=== PATIENT | female | born 1985 | race Asian ===

== ENCOUNTER 2021-01-28 12:13 | Emergency (ER) | payer OTHER ==
[~2021-01-28] VITALS: Ht 157.5 cm; Wt 74.8 kg
--- NOTE | 2021-01-28 12:31 | NUR ---
The patient bibs c/o headache 8/ on and off x 1 week and high blood pressure, took amlodipine 5mg [employer]. Respiration regular and unlabored. Denies SOB. Denies N/V. Attached to the monitor. Warm blanket provided. Will continue to monitor the patient.
--- NOTE | 2021-01-28 12:33 | NUR ---
DR OVALLE AT THE BEDSIDE
[2021-01-28] MEDS ORDERED: LORAZEPAM 0.5 MG TABLET ONE (12:46)
[2021-01-28] MEDS ORDERED: LORAZEPAM 0.5 MG TABLET PO ONE (13:00)
--- NOTE | 2021-01-28 13:20 | NUR ---
THE PATIENT IS TAKEN TO CT
--- NOTE | 2021-01-28 13:32 | NUR ---
THE PATIENT IS BACK FROM CT
--- NOTE | 2021-01-28 14:01 | NUR ---
MADE DR OVALLE AWARE BP 220/151 AND HR 124.
[2021-01-28] MEDS ORDERED: METO25TA20 GT (14:21)
[2021-01-28] MEDS ORDERED: LABETALOL HCL (100MG) 100 MG TABLET ONE (14:26)
[2021-01-28] MEDS ORDERED: LABETALOL HCL (100MG) 100 MG TABLET PO ONE (14:30)
--- NOTE | 2021-01-28 15:07 | NUR ---
Patient discharged to home in stable condition. Written and verbal after care instructions given. Patient verbalizes understanding of instruction.
[2021-01-28 15:08] VITALS: BP 161/150
== END 2021-01-28 15:08 | disposition home or self-care (01) ==
LOC: ER 12:13
DX: I10 Essential (primary) hypertension (principal); Z79.899 Other long term (current) drug therapy
CPT/HCPCS: 70450-TC

== ENCOUNTER 2021-01-28 21:42 | Emergency (ER) | payer OTHER ==
[~2021-01-28] VITALS: Ht 157.5 cm; Wt 74.8 kg
[~2021-01-28 21:42] MED LIST: METO25TA20 GT
--- NOTE | 2021-01-28 21:58 | NUR ---
PT BIBRA C/O MISCARRIAGE. PT AAOX4 BREATHING EVENLY AND UNLABORED. PER PT, SHE WENT TO THE BATHROOM AND THE FETUS FELL INTO THE TOILET AND WAS STILL ATTACHED TO THE UMBILICAL CORD. UPON EVALUATION, FETUS WAS ATTACHED TO UMBILICAL CORD AND PT WAS FEELING ABD CRAMPING. PT ATTACHED TO MONITOR AND POX. MD AT BEDSIDE FOR EVAL. PT GIVEN BLANKET AND CALL LIGHT WITHIN REACH. WILL CONTINUE TO MONITOR.
[2021-01-28] MEDS ORDERED: ONDANSETRON HCL/PF 4 MG/2 ML VIAL ONE (22:47)
[2021-01-28] MEDS ORDERED: MORPHINE SULFATE INJ 4 MG/ML DISP.SYRIN ONE (22:47)
[2021-01-28] MEDS ORDERED: hydrALAZINE HCL IV 20 MG VIAL ONE (22:47)
[2021-01-28] MEDS ORDERED: ONDANSETRON HCL/PF 4 MG/2 ML VIAL IVP ONE (23:00)
[2021-01-28] MEDS ORDERED: MORPHINE SULFATE INJ 2 MG/ML DISP.SYRIN IV ONE (23:00)
[2021-01-28] MEDS ORDERED: IV NS 0.9% 1,000 ML BAG IV ONE ×2 (23:00)
[2021-01-28] MEDS ORDERED: OXYTOCIN 20 UNIT in IV NS 0.9% 1,000 ML IV ONE (23:00)
[2021-01-28] MEDS ORDERED: hydrALAZINE HCL IV 20 MG VIAL IV ONE (23:00)
[2021-01-28] MEDS ORDERED: OXYTOCIN 10 UNIT/ML ML ONE ×2 (23:04)
[2021-01-28 23:41] LABS: BASOPHILS % (AUTO) 0.1 % (0.0-2.0); HEMATOCRIT 36 % (33-45); HEMOGLOBIN 11.7 g/dL (11.5-14.8); LYMPHOCYTES # (AUTO) 0.9 K/uL (0.8-4.8); MEAN CORPUSCULAR HGB CONC 33 g/dl (31.0-36.0); MEAN CORPUSCULAR VOLUME 89 fL (82-100); MONOCYTES # (AUTO) 0.6 K/uL (0.1-1.30); MONOCYTES % (AUTO) 4.1 % (2.0-12.0); NEUTROPHILS # (AUTO) 13.4 K/uL (1.8-8.9); NEUTROPHILS % (AUTO) 89.8 % (43.0-81.0); PLATELET COUNT (AUTO) 70 K/uL (150-450); RED BLOOD CELL COUNT(AUTO) 3.98 MIL/uL (4.0-5.2); WHITE BLOOD COUNT (AUTO) 14.9 K/uL (4.3-11.0)
--- NOTE | 2021-01-28 23:57 | NUR ---
Nohemi wyatt in [facility] - 01/28/21 at 2358 by CHILANGO PER US KERA LOZANO
--- NOTE | 2021-01-28 23:57 | NUR ---
PER XRAY, US EN ROUTE
--- NOTE | 2021-01-29 00:25 | NUR ---
DR. PRASAD ON PHONE WITH DR. NOVOA
--- NOTE | 2021-01-29 00:32 | NUR ---
US AT BEDSIDE
[2021-01-29 00:50] LABS: ALBUMIN 2.7 g/dL (3.4-5.0); BILIRUBIN,DIRECT 0.6 mg/dL (0.0-0.2); BILIRUBIN,TOTAL 1.6 mg/dL (0.2-1.0); TOTAL PROTEIN, SERUM 6.8 g/dL (6.4-8.2)
--- NOTE | 2021-01-29 01:39 | NUR ---
pt changed, needs met
[2021-01-29 01:46] LABS: CALCIUM, SERUM 8.5 mg/dL (8.5-10.1); CREATININE 1.3 mg/dL (0.6-1.3); POTASSIUM 4.1 mmol/L (3.5-5.1)
[2021-01-29] MEDS ORDERED: OXYTOCIN 10 UNIT/ML ML ONE (02:34)
--- NOTE | 2021-01-29 02:40 | NUR ---
VERBAL ORDER OF 10UNITS OF PITOCIN.
--- NOTE | 2021-01-29 02:42 | NUR ---
PITOCIN GIVEN AT BEDSIDE BY
--- NOTE | 2021-01-29 05:35 | NUR ---
SPEAKING WITH DR LANDA
--- NOTE | 2021-01-29 05:45 | NUR ---
SPOKE WITH DAISY RN [facility] FOR AN OB PATIENT NEEDING A MED/SURG ROOM. REFFERED BY DR. GISSELL PRASAD. WILL CALL BACK FOR ACCEPTANCE. FACE SHEET FACE PER REQUEST.
--- NOTE | 2021-01-29 05:50 | NUR ---
VERBAL ORDER 10MG HYDRALAZINE IVP
[2021-01-29 05:55] VITALS: BP 163/98
--- NOTE | 2021-01-29 05:55 | NUR ---
10 MG REMAINDER OF HYDRALAZINE USED FROM PREVIOUS PULL OF MEDICATION.
--- NOTE | 2021-01-29 06:05 | NUR ---
PT ACCEPTED TO [facility]. GOING TO ROOM 201. CALL REPORT [phone] AT [phone]
--- NOTE | 2021-01-29 06:05 | NUR ---
SPOKE WITH TORI FROM [facility] FOR TRANSPORT TO [facility]. ETA WILL BE 1HR.
--- NOTE | 2021-01-29 06:08 | NUR ---
PER NURSING PUMP MECHANIC AT [place] CALL AT [phone] FOR REPORT.
[2021-01-29] MEDS ORDERED: OXYTOCIN 10 UNIT/ML ML IM ONE (06:30)
[2021-01-29] MEDS ORDERED: hydrALAZINE HCL IV 20 MG VIAL IV ONE (06:30)
--- NOTE | 2021-01-29 06:55 | NUR ---
CALLED LAB TO F/U ANOTHER 10 MIN FOR COVID SWAB
--- NOTE | 2021-01-29 06:57 | NUR ---
GAVE REPORT TO EMS FOR [facility]
--- NOTE | 2021-01-29 07:11 | NUR ---
GAVE REPORT TO JOSE ANTONIO PALOMINO FOR [facility] AT [facility] [place]
--- NOTE | 2021-01-29 07:14 | NUR ---
CALLED LAB TO F/U ON COVID RESULT. PER LAB, NEED TO REDO IT. ETA 15 MIN
--- NOTE | 2021-01-29 07:43 | NUR ---
patient left via gurney accompanied by 2 emt in no distress going to [facility].
== END 2021-01-29 07:43 | disposition short-term general hospital (02) ==
LOC: ER 21:45
DX: O03.30 Unspecified complication following incomplete spontaneous abortion (principal); O10.919 Unspecified pre-existing hypertension complicating pregnancy, unspecified trimester; D72.829 Elevated white blood cell count, unspecified; Z20.822 Contact with and (suspected) exposure to COVID-19
CPT/HCPCS: 36415; 76856; 80048; 80076; 84702; 85025; 85730; 86850; 87426; 96365; 96372; 96375; 96376; 99285; A6403; C9803; J0360; J2270; J2405; J2590 ×3; J7030